=== PATIENT | female | born 1960 | race Caucasian/White ===

== ENCOUNTER → 2019-03-30 10:30 | Outpatient (CLI) | payer OTHER, SELFPAY ==
--- NOTE | 2019-03-30 | DI.MG.S_ITS ---
BILATERAL DIGITAL SCREENING MAMMOGRAM 3D/2D WITH CAD: 03/30/2019 CLINICAL: Routine screening. Family history of breast cancer. Comparison is made to exams dated: 03/14/2018 mammogram, 02/25/2017 mammogram, and 02/21/2016 mammogram - [facility]. The tissue of both breasts is extremely dense, which lowers the sensitivity of mammography. Current study was also evaluated with a Computer Aided Detection (CAD) system. No significant masses, calcifications, or other findings are seen in either breast. There has been no significant interval change. IMPRESSION: NEGATIVE There is no mammographic evidence of malignancy. A 1 year screening mammogram is recommended. This exam was interpreted at Station ID: [id number]. NOTE: For mammograms, a report in lay terms will be sent to the patient. Approximately 15% of breast malignancies will not be visualized mammographically. In the management of a palpable breast mass, a negative mammogram must not discourage biopsy of a clinically suspicious lesion. Electronically Signed By: Geoff harris/torie:03/30/2019 11:04:04 letter sent: Normal Exam ACR BI-RADS Category 1: Negative 3341F
== END ==
PROVIDERS: Family Provider Family Medicine; PCP Family Medicine; Visit Provider Family Medicine
DX: Z12.31 Encounter for screening mammogram for malignant neoplasm of breast (principal); Z80.3 Family history of malignant neoplasm of breast
CPT/HCPCS: 77063; 77067

== ENCOUNTER → 2019-04-22 12:31 | Outpatient (CLI) | payer OTHER, SELFPAY | PROVIDERS: Family Provider Family Medicine; PCP Family Medicine; Visit Provider Internal Medicine | DX: M85.88 Other specified disorders of bone density and structure, other site (principal); Z78.0 Asymptomatic menopausal state; E03.9 Hypothyroidism, unspecified | CPT/HCPCS: 77080 ==

== ENCOUNTER → 2020-04-14 15:06 | Outpatient (CLI) | payer OTHER, SELFPAY ==
--- NOTE | 2020-04-14 15:07 | DI.MG.S_ITS ---
BILATERAL DIGITAL SCREENING MAMMOGRAM 3D/2D WITH CAD: 04/14/2020 CLINICAL: Routine screening. Family history of breast cancer. Comparison is made to exams dated: 03/30/2019 mammogram, 03/14/2018 mammogram, 02/25/2017 mammogram, 02/21/2016 mammogram, 02/28/2015 ultrasound, and 02/17/[address] - [facility]. The tissue of both breasts is extremely dense, which lowers the sensitivity of mammography. Current study was also evaluated with a Computer Aided Detection (CAD) system. No significant masses, calcifications, or other findings are seen in either breast. There has been no significant interval change. IMPRESSION: NEGATIVE There is no mammographic evidence of malignancy. A 1 year screening mammogram is recommended. This exam was interpreted at Station ID: [id number]. NOTE: For mammograms, a report in lay terms will be sent to the patient. Approximately 15% of breast malignancies will not be visualized mammographically. In the management of a palpable breast mass, a negative mammogram must not discourage biopsy of a clinically suspicious lesion. Electronically Signed By: Be carr/torie:04/14/2020 16:00:35 letter sent: Normal Exam ACR BI-RADS Category 1: Negative 3341F
== END ==
PROVIDERS: Family Provider Family Medicine; PCP Family Medicine; Referring Provider Family Medicine; Visit Provider Family Medicine
DX: Z12.31 Encounter for screening mammogram for malignant neoplasm of breast (principal); Z80.3 Family history of malignant neoplasm of breast
CPT/HCPCS: 77063; 77067

== ENCOUNTER → 2020-09-19 07:40 | Outpatient (CLI) | payer OTHER, SELFPAY ==
--- NOTE | 2020-09-19 | DI.RAD.S_ITS ---
PROCEDURE: XR CERVICAL SPINE 4V OR 5V INDICATIONS: NECK PAIN TECHNIQUE: 5 views of the cervical spine were acquired. COMPARISON: None. FINDINGS: Bones: No fractures or dislocations to the T2 level. No suspicious bony lesions. Straightening of cervical lordosis which may be due to patient positioning and/or concurrent muscle spasms. Multilevel cervical spondylosis most severe at C5-6 where there is moderate disc space loss, moderate degenerative endplate changes, and prominent endplate osteophyte formation. There is also minimal grade 1 anterolisthesis of C4 on C5, likely related to spondylitic changes. There is decreased range of motion between flexion and extension, with preserved normal bony alignment. Soft tissues: Prevertebral soft tissues are normal in thickness. IMPRESSION: Cervical spine without acute osseous abnormalities. Moderate multilevel cervical spondylosis most severe at C5-6. Mild straightening of normal cervical lordosis likely related to positioning and/or concurrent muscle spasms. Dictated by: Geoff Wong M.D. on 09/19/2020 at 13:42 Approved by: Geoff Wong M.D. on 09/19/2020 at 13:44
--- NOTE | 2020-09-19 | DI.US.S_ITS ---
PROCEDURE: US ABDOMEN COMPLETE INDICATIONS: RIGHT QUADRANT PELVIC PAIN TECHNIQUE: Real-time scanning was performed of the abdominal and retroperitoneal organs, with image documentation. COMPARISON: [facility], CT, IVP (ABD & PEL WWO CONTRAST), 01/24/2017, 16:16. [facility], US, ABDOMEN COMPLETE, 12/05/2016, 7:55. FINDINGS: Liver: Liver is normal in size and homogeneous in echotexture. Redemonstration of a left hepatic lobe cyst. It measures 1.4 x 0.8 x 1.0 cm. Accounting for differences in imaging technique and imaging modality, this appears stable. Gallbladder: Gallbladder is normal in sonographic appearance without gallstones, gallbladder wall thickening, pericholecystic fluid, or abnormal sonographic Morocho's. Biliary ducts: Intrahepatic bile ducts are non-dilated. Extrahepatic bile duct caliber measures 6 mm. Normal is 6-7 mm or less in diameter, or 10 mm or less post-cholecystectomy. Pancreas: Visualized portions of the pancreas are sonographically normal. Spleen: Spleen is normal in size and homogeneous in echotexture. Kidneys: Kidneys are normal in size and echotexture. Right kidney measures 11.7 cm long; left kidney measures 12.2 cm long. No hydronephrosis or nephrolithiasis. No solid masses. Redemonstration of large simple right upper pole renal cyst measuring 5.9 x 5.1 x 5.2 cm. Aorta: Visualized aorta is normal in caliber at less than 3 cm. Iliacs: Proximal common iliac arteries are normal in caliber at less than 2.5 cm. IVC: Intrahepatic inferior vena cava is patent. Miscellaneous: No free abdominal fluid. IMPRESSION: 1. Abdomen without acute sonographic abnormalities. 2. Stable appearance of left hepatic lobe cyst and simple right upper pole renal cyst. 3. The gallbladder is unremarkable in appearance without evidence for cholelithiasis or acute cholecystitis. Dictated by: Geoff Wong M.D. on 09/19/2020 at 9:17 Approved by: Geoff Wong M.D. on 09/19/2020 at 9:23
--- NOTE | 2020-09-19 | DI.US.S_ITS ---
PROCEDURE: US PELVIC COMPLETE INDICATIONS: RIGHT QUADRANT PAIN TECHNIQUE: Real-time scanning was performed of the pelvic organs, with image documentation. Additional endovaginal scanning was necessary due to incomplete visualization of the adnexal and endometrial structures by transabdominal scanning. COMPARISON: [facility], , US ABDOMEN COMPLETE, 09/19/2020, 7:57. [facility], , PELVIC COMPLETE, 12/05/2016, 8:26. FINDINGS: Transabdominal scanning: No pathologic free abdominal or pelvic fluid. On the accompanying abdominal ultrasound, the kidneys demonstrate a normal appearance. Endovaginal scanning: Uterus: Uterus is normal in size at 3.4 x 2.2 x 3.8 cm. The endometrium measures 3 mm in combined thickness. Ovaries: Neither ovary can be seen. No adnexal masses are seen on either side. IMPRESSION: No imaging explanation is found for this patient's presenting symptoms. Dictated by: Buddy Santana M.D. on 09/19/2020 at 14:08 Approved by: Buddy Santana M.D. on 09/19/2020 at 14:12
== END ==
PROVIDERS: Family Provider Family Medicine; PCP Family Medicine; Referring Provider Family Medicine; Visit Provider Family Medicine
DX: M54.2 Cervicalgia (principal); R10.2 Pelvic and perineal pain; R10.31 Right lower quadrant pain
CPT/HCPCS: 72050; 76700; 76830; 76856

== ENCOUNTER → 2020-10-12 08:07 | Outpatient (CLI) | payer OTHER, SELFPAY ==
--- NOTE | 2020-10-12 | DI.MRI.S_ITS ---
PROCEDURE: MR LUMBAR SPINE WO CON INDICATIONS: Radiculopathy, lumbar region TECHNIQUE: Noncontrast sagittal T1 spin echo and T2 fast echo, sagittal STIR, axial T1 and T2 fast spin echo through the lumbar spine. In cases with scoliosis, additional coronal T2 fast spin echo may be performed. COMPARISON: None. FINDINGS: Image quality: Excellent. Alignment and Curvature: There is normal bony alignment. Bone Marrow: Marrow is of normal overall signal. No acute vertebral body compression fractures. Spinal Cord: Conus medullaris terminates at the L1 level. Visualized cord demonstrates normal signal and size. Paraspinous Soft Tissues: No paravertebral masses. Large exophytic right renal cyst. L1-L2: Normal appearance. L2-L3: Loss of disc signal. Mild, diffuse disc bulge. Mild narrowing of the central canal. No neural foraminal narrowing. No neural compression. L3-L4: Loss of disc signal and mild loss of disc height. Mild, diffuse disc bulge. Mild narrowing of the central canal. Mild bilateral neural foraminal narrowing. No neural compression. L4-L5: Loss of disc signal. Mild, diffuse disc bulge. Mild narrowing of the central canal. Moderate right and mild left neural foraminal narrowing. No neural compression. Fissure noted in the left foraminal annulus. L5-S1: Loss of disc signal. Mild, diffuse disc bulge. No central stenosis. No neural foraminal narrowing. No neural compression. IMPRESSION: 1. Multilevel degenerative disc disease. 2. Mild L3-L4 and L4-L5 central canal narrowing. 3. Moderate right and mild left L4-L5 neural foraminal narrowing. Mild bilateral L3-L4 neural foraminal narrowing. 4. No neural compression. 5. L4-L5 disc annulus fissure. Dictated by: Audrey Dutta MD, PhD on 10/12/2020 at 16:02 Approved by: Audrey Dutta MD, PhD on 10/12/2020 at 16:06
== END ==
PROVIDERS: Family Provider Family Medicine; PCP Family Medicine; Referring Provider Family Medicine; Visit Provider Family Medicine
DX: M51.16 Intervertebral disc disorders with radiculopathy, lumbar region (principal); M48.061 Spinal stenosis, lumbar region without neurogenic claudication
CPT/HCPCS: 72148

== ENCOUNTER → 2021-04-16 15:48 | Outpatient (CLI) | payer OTHER, SELFPAY ==
--- NOTE | 2021-04-16 15:51 | DI.MG.S_ITS ---
BILATERAL DIGITAL SCREENING MAMMOGRAM 3D/2D WITH CAD: 04/16/2021 CLINICAL: Routine screening. Comparison is made to exams dated: 04/14/2020 mammogram, 03/30/2019 mammogram, 03/14/2018 mammogram, 02/25/2017 mammogram, and 02/21/2016 mammogram - [facility]. The tissue of both breasts is extremely dense, which lowers the sensitivity of mammography. Current study was also evaluated with a Computer Aided Detection (CAD) system. No significant masses, calcifications, or other findings are seen in either breast. There has been no significant interval change. IMPRESSION: NEGATIVE There is no mammographic evidence of malignancy. A 1 year screening mammogram is recommended. This exam was interpreted at Station ID: [id number]. NOTE: For mammograms, a report in lay terms will be sent to the patient. Approximately 15% of breast malignancies will not be visualized mammographically. In the management of a palpable breast mass, a negative mammogram must not discourage biopsy of a clinically suspicious lesion. Electronically Signed By: Be carr/torie:04/16/2021 17:22:35 letter sent: Normal Exam ACR BI-RADS Category 1: Negative 3341F
== END ==
PROVIDERS: Family Provider Family Medicine; PCP Family Medicine; Referring Provider Family Medicine; Visit Provider Family Medicine
DX: Z12.31 Encounter for screening mammogram for malignant neoplasm of breast (principal)
CPT/HCPCS: 77063; 77067

== ENCOUNTER → 2021-05-29 14:05 | Outpatient (CLI) | payer OTHER, SELFPAY ==
--- NOTE | 2021-05-29 | DI.RAD.S_ITS ---
PROCEDURE: XR DEXA AXIAL SKELETON INDICATIONS: Asymptomatic menopausal state COMPARISON: [facility], CR, XR DEXA AXIAL SKELETON, 04/22/2019, 12:54. FINDINGS: This blank DEXA report has been sent in error by the PACS system. The correct and complete report will be forthcoming in 1-2 days. Thank you for your patience and understanding. Dictated by: Audrey Dutta MD, PhD on 05/29/2021 at 16:29 Approved by: Audrey Dutta MD, PhD on 05/29/2021 at 16:29
== END ==
PROVIDERS: Family Provider Family Medicine; PCP Family Medicine; Referring Provider Family Medicine; Visit Provider Internal Medicine
DX: M81.0 Age-related osteoporosis without current pathological fracture (principal); Z78.0 Asymptomatic menopausal state; E07.9 Disorder of thyroid, unspecified
CPT/HCPCS: 77080

== ENCOUNTER → 2021-07-05 13:10 | Outpatient (CLI) | payer OTHER, SELFPAY | PROVIDERS: Family Provider Family Medicine; PCP Family Medicine; Referring Provider Otolaryngology; Visit Provider Otolaryngology | DX: Z01.810 Encounter for preprocedural cardiovascular examination (principal) | CPT/HCPCS: 93005 ==

== ENCOUNTER → 2022-04-18 10:54 | Outpatient (CLI) | payer OTHER, SELFPAY ==
--- NOTE | 2022-04-18 | DI.MG.S_ITS ---
BILATERAL DIGITAL SCREENING MAMMOGRAM 3D/2D WITH CAD: 04/18/2022 CLINICAL: Routine screening. Family history of breast cancer. Comparison is made to exams dated: 04/16/2021 mammogram, 04/14/2020 mammogram, 03/30/2019 mammogram, and 03/14/2018 mammogram - . The tissue of both breasts is extremely dense, which lowers the sensitivity of mammography. Current study was also evaluated with a Computer Aided Detection (CAD) system. No significant masses, calcifications, or other findings are seen in either breast. There has been no significant interval change. IMPRESSION: NEGATIVE There is no mammographic evidence of malignancy. A 1 year screening mammogram is recommended. This exam was interpreted at Station ID: [id number]. NOTE: For mammograms, a report in lay terms will be sent to the patient. Approximately 15% of breast malignancies will not be visualized mammographically. In the management of a palpable breast mass, a negative mammogram must not discourage biopsy of a clinically suspicious lesion. Electronically Signed By: Be carr/torie:04/18/2022 12:06:11 letter sent: Normal Exam ACR BI-RADS Category 1: Negative 3341F
== END ==
PROVIDERS: Family Provider Family Medicine; PCP Family Medicine; Referring Provider Family Medicine; Visit Provider Family Medicine
DX: Z12.31 Encounter for screening mammogram for malignant neoplasm of breast (principal); Z80.3 Family history of malignant neoplasm of breast
CPT/HCPCS: 77063; 77067

== ENCOUNTER → 2022-11-07 17:02 | Outpatient (CLI) | payer OTHER, SELFPAY | PROVIDERS: Family Provider Family Medicine; PCP Family Medicine; Visit Provider Registered Nurse | DX: J02.9 Acute pharyngitis, unspecified (principal) | CPT/HCPCS: 87070 ==

== ENCOUNTER → 2023-03-27 09:52 | Outpatient (CLI) | payer OTHER, SELFPAY ==
--- NOTE | 2023-03-27 | DI.RAD.S_ITS ---
Bone Density Report Name: TIA GARCIA Age: 62 Sex: Female Ethnicity: White Date of : 1960 Indication: postmenopausal; screening for osteoporosis; Referring Provider: SUZI EUCEDA Study: Bone densitometry was performed. Exam Date: March 27, 2023 Accession number: [id number] Bone Density: Region BMD T-score Z-score Classification AP Spine(L1-L4) 0.772 -2.5 -1.0 Osteoporosis Femoral Neck (Left) 0.656 -1.7 -0.4 Osteopenia Total Hip (Left) 0.777 -1.4 -0.4 Osteopenia Femoral Neck (Right) 0.657 -1.7 -0.4 Osteopenia Total Hip (Right) 0.787 -1.3 -0.3 Osteopenia Total Hip Mean 0.782 -1.4 -0.4 Osteopenia World Health Organization criteria for BMD impression classify patients as: Normal (T-score at or above -1.0), Osteopenia (T-score between -1.0 and -2.5), or Osteoporosis (T-score at or below -2.5). 10-year Fracture Risk: FRAX not reported because: Some T-score for Spine Total or Hip Total or Femoral Neck at or below -2.5 Treated for osteoporosis Impression: The patient has osteoporosis, based on the Total Spine T-score. Discussion: It is important to ask patients whether they are taking their medications and to encourage continued and appropriate compliance with their osteoporosis therapies to reduce fracture risk. It is also important to review their risk factors and encourage appropriate calcium and vitamin D intakes, exercise, fall prevention and other lifestyle measures. Follow-Up: Consider a repeat BMD and Vertebral Fracture Assessment (VFA) exam in 2 years or sooner if medically necessary, to reassess this patient's status. Reported by: LIBRA HOBBS M.D. on 03/27/2023 12:17:00 PM.
== END ==
PROVIDERS: Family Provider Family Medicine; PCP Family Medicine; Referring Provider Family Medicine; Visit Provider Family Medicine
DX: M81.0 Age-related osteoporosis without current pathological fracture (principal)
CPT/HCPCS: 77080

== ENCOUNTER → 2023-04-21 14:15 | Outpatient (CLI) | payer OTHER, SELFPAY ==
--- NOTE | 2023-04-21 | DI.MG.S_ITS ---
BILATERAL DIGITAL SCREENING MAMMOGRAM 3D/2D WITH CAD: 04/21/2023 CLINICAL: Routine screening. Family history of breast cancer. Comparison is made to exams dated: 04/18/2022 mammogram, 04/16/2021 mammogram, 04/14/2020 mammogram, and 03/30/2019 mammogram - [facility]. Both breasts are extremely dense, which lowers the sensitivity of mammography (category d />75% glandular tissue). Current study was also evaluated with a Computer Aided Detection (CAD) system. No significant masses, calcifications, or other findings are seen in either breast. There has been no significant interval change. IMPRESSION: NEGATIVE There is no mammographic evidence of malignancy. A 1 year screening mammogram is recommended. Based on the Tyrer Cuzick model (a risk assessment model) the patient's lifetime risk is 13.2% and her 10 year risk is 5.5%. According to the ACR, ACS, and NCCN guidelines, an annual breast MRI exam along with mammogram is recommended if the patient's lifetime risk is 20% or greater. This exam was interpreted at Station ID: [id number]. NOTE: For mammograms, a report in lay terms will be sent to the patient. Approximately 15% of breast malignancies will not be visualized mammographically. In the management of a palpable breast mass, a negative mammogram must not discourage biopsy of a clinically suspicious lesion. Electronically Signed By: Be carr/torie:04/21/2023 15:13:35 letter sent: Normal Exam ACR BI-RADS Category 1: Negative 3341F
== END ==
PROVIDERS: Family Provider Family Medicine; PCP Family Medicine; Referring Provider Family Medicine; Visit Provider Family Medicine
DX: Z12.31 Encounter for screening mammogram for malignant neoplasm of breast (principal); Z80.3 Family history of malignant neoplasm of breast
CPT/HCPCS: 77063; 77067

== ENCOUNTER → 2024-04-26 08:23 | Outpatient (CLI) | payer OTHER, SELFPAY ==
--- NOTE | 2024-04-26 08:24 | DI.MG.S_ITS ---
BILATERAL DIGITAL SCREENING MAMMOGRAM 3D/2D WITH CAD: 04/26/2024 CLINICAL: Routine screening. Family history of breast cancer. Comparison is made to exams dated: 04/21/2023 mammogram, 04/18/2022 mammogram, and 04/16/2021 mammogram - [facility]. Both breasts are extremely dense, which lowers the sensitivity of mammography (category d />75% glandular tissue). Current study was also evaluated with a Computer Aided Detection (CAD) system. No significant masses, calcifications, or other findings are seen in either breast. There has been no significant interval change. IMPRESSION: NEGATIVE There is no mammographic evidence of malignancy. A 1 year screening mammogram is recommended. Based on the Tyrer Cuzick model (a risk assessment model) the patient's lifetime risk is 12.6% and her 10 year risk is 5.6%. According to the ACR, ACS, and NCCN guidelines, an annual breast MRI exam along with mammogram is recommended if the patient's lifetime risk is 20% or greater. This exam was interpreted at Station ID: [id number]. NOTE: For mammograms, a report in lay terms will be sent to the patient. Approximately 15% of breast malignancies will not be visualized mammographically. In the management of a palpable breast mass, a negative mammogram must not discourage biopsy of a clinically suspicious lesion. Electronically Signed By: Nestor egan/torie:04/26/2024 10:28:51 letter sent: Normal Exam ACR BI-RADS Category 1: Negative 3341F
== END ==
PROVIDERS: Family Provider Family Medicine; PCP Family Medicine; Referring Provider Family Medicine; Visit Provider Family Medicine
DX: Z12.31 Encounter for screening mammogram for malignant neoplasm of breast (principal); Z80.3 Family history of malignant neoplasm of breast; R92.343 Mammographic extreme density, bilateral breasts
CPT/HCPCS: 77063; 77067

== ENCOUNTER → 2025-05-02 15:14 | Outpatient (CLI) | payer BC, SELFPAY ==
--- NOTE | 2025-05-02 15:15 | DI.MG.S_ITS ---
MM screening mammo BI: 05/02/2025. BI-RADS: 1 CLINICAL: 65-year old female for bilateral screening mammogram. Tyrer-Cuzick lifetime risk of 7.6%. No personal or first-degree family history of breast cancer. PRIOR EXAMS 04/26/2024, 04/21/2023, 04/18/2022, 04/16/2021, 04/14/2020. MAMMOGRAPHY TECHNIQUE: 2D and 3D (tomosynthesis) digital mammographic views obtained, with additional images as needed for full coverage. Current study was also evaluated with a Computer Aided Detection (CAD) system. DENSITY D. The breasts are extremely dense, which lowers the sensitivity of mammography. MAMMOGRAPHY FINDINGS Bilateral: No suspicious mass, asymmetry, microcalcification, or other abnormality seen. No significant change from comparison. IMPRESSION: * No evidence of malignancy. RECOMMENDATIONS Bilateral * Annual screening mammography. OVERALL ASSESSMENT CATEGORY BI-RADS-1: Negative. The [employer] recommends annual screening mammography beginning at age 40 for women with average risk of breast cancer. ELECTRONICALLY SIGNED: Esau Randhawa M.D. on 05/03/2025 at 10:31:52 AM PT
== END ==
LOC: MAMMO 15:15
PROVIDERS: Family Provider Family Medicine; PCP Family Medicine; Referring Provider Family Medicine; Visit Provider Family Medicine
DX: Z12.31 Encounter for screening mammogram for malignant neoplasm of breast (principal); R92.343 Mammographic extreme density, bilateral breasts
CPT/HCPCS: 77063; 77067

== ENCOUNTER → 2025-10-31 13:45 | Outpatient (CLI) | payer OTHER, SELFPAY ==
--- NOTE | 2025-10-31 13:48 | DI.RAD.S_ITS ---
PROCEDURE: XR RIBS RT MIN 3V W CXR 1V INDICATIONS: R SIDE RIB PAIN TECHNIQUE: 3 views of the ribs were acquired, along with a single view chest. COMPARISON: None. FINDINGS: Surgical changes and devices: None. Bones and chest wall: No fractures or dislocations. No suspicious bony lesions. Overlying soft tissues appear unremarkable. Lungs and pleura: No pleural effusions or pneumothorax. Lungs appear clear. Mediastinum: Mediastinal contours appear normal. Heart size is normal. IMPRESSION: No displaced rib fracture or pneumothorax. Dictated by: Jose M Dela Cruz M.D. on 10/31/2025 at 15:56 Approved by: Jose M Dela Cruz M.D. on 10/31/2025 at 15:57
== END ==
PROVIDERS: Family Provider Family Medicine; PCP Family Medicine; Referring Provider Family Medicine; Visit Provider Family Medicine
DX: R07.89 Other chest pain (principal)
CPT/HCPCS: 71101